=== PATIENT | female | born 1990 | race Caucasian/White ===

== ENCOUNTER 2017-02-17 07:14 | Inpatient (IN) | payer OTHER ==
[2017-02-17] MEDS ORDERED: Oxytocin/Lactated Ringers 10 UNIT/1,000 ML BAG IV SCH ×2 (07:15)
[2017-02-17] MEDS ORDERED: Sodium Chloride 0.9% 10 ML Syringe FLUSH PRN (07:15)
[2017-02-17] MEDS ORDERED: Nalbuphine 20 MG/1 ML Amp IVPUSH PRN (07:15)
[2017-02-17] MEDS ORDERED: Ondansetron 4 MG/2 ML SDV IVPUSH PRN ×2 (07:15→12:52)
--- NOTE | 2017-02-17 07:25 | PCM.LDHP ---
L&D History of Present Illness - General Date of Service: 02/17/17 Admit Problem/Dx: Patient Status Order with Admit Dx/Problem 02/17/17 07:17 Patient Status [ADT] Routine Admission Diagnosis/Problem Admission Diagnosis/Problem Normal Source of Information: Patient History Limitations: Reports: No Limitations - History of Present Illness Introduction:: Patient is a 26 y/o at 39 2/7 wks gestation who presents for elective IOL. Doing well today. No major issues or concerns. Past Medical History - Past Health History Medical/Surgical History: Denies Medical/Surgical History Cardiovascular History: Reports: Other (See Below) (Hx of gestational HTN) [employer] TE[employer]ER History: Reports: : 2 Para: 1 LMP (Approximate): Social & Family History - Tobacco Use Smoking Status *Q: Never Smoker - Alcohol Use Alcohol Use History: No - Recreational Drug Use Recreational Drug Use: No H&P Review of Systems - Review of Systems: Review Of Systems: See Below General: Reports: No Symptoms Pulmonary: Reports: No Symptoms Cardiovascular: Reports: Orthopnea Gastrointestinal: Reports: No Symptoms Genitourinary: Reports: No Symptoms Musculoskeletal: Reports: No Symptoms L&D Exam - Exam Exam: See Below - OB Specific Contraction Intensity: Irritability Movement: Active Heart Tones: Present Heart Tones per Min: 130 Heart Rate (FHR) Variability: Moderate (6-25 bmp) Presentation: Vertex Estimated Weight: 7.5 - Carrizales Score Carrizales Score Cervix Position: Posterior Carrizales Score Consistency: Soft Carrizales Score Effacement: >80% Carrizales Score Dilation: 3-4 cm Carrizales Score Infant's Station: -2 Carrizales Score Total: 8 - Exam General: Alert, Oriented, Cooperative Lungs: Clear to Auscultation, Normal Respiratory Effort Cardiovascular: Regular Rate, Regular Rhythm Abdomen: Soft Genitourinary: Normal external exam Extremities: Normal Inspection Skin: Warm, Dry, Intact - Problem List (1) 39 weeks gestation of SNOMED Code(s): 28872796 ICD Code: Z3A.39 - 39 WEEKS GESTATION OF Status: Acute Current Visit: Yes (2) Elective induction of labor planned SNOMED Code(s): 099035026 ICD Code: [id number] - Status: Acute Current Visit: Yes Problem List Initiated/Reviewed/Updated: Yes Orders Last 24hrs: Active Orders 24 hr Category Date Time Status Patient Status [ADT] Routine ADT 02/17/17 07:17 Ordered Activity as Tolerated [RC] PFP Care 02/17/17 07:15 Ordered Communication Order [RC] ASDIRECTED Care 02/17/17 07:15 Ordered Communication Order [RC] ASDIRECTED Care 02/17/17 07:15 Ordered Communication Order [RC] ASDIRECTED Care 02/17/17 07:15 Ordered Heart Tones [RC] ASDIRECTED Care 02/17/17 07:17 Ordered Monitoring [RC] INTERMITTENT Care 02/17/17 07:15 Ordered Notify Provider [RC] ASDIRECTED Care 02/17/17 07:15 Ordered Notify Provider [RC] PFP Care 02/17/17 07:15 Ordered Notify Provider [RC] PRN Care 02/17/17 07:15 Ordered Peripheral IV Care [RC] . DIRECTED Care 02/17/17 07:17 Ordered Vaginal Exam [RC] ASDIRECTED Care 02/17/17 07:15 Ordered Vital Signs [RC] ASDIRECTED Care 02/17/17 07:15 Ordered Vital Signs [RC] PER UNIT ROUTINE Care 02/17/17 07:15 Ordered Regular Diet [DIET] Diet 02/17/17 Breakfast Ordered CBC W/O DIFF,HEMOGRAM [HEME] Routine Lab 02/17/17 07:15 Ordered TYPE AND SCREEN [BBK] Routine Lab 02/17/17 07:15 Ordered Lactated Ringers [Ringers, Lactated] 1,000 ml Med 02/17/17 07:15 Ordered IV ASDIRECTED Nalbuphine [Nubain] Med 02/17/17 07:15 Ordered 10 mg IVPUSH Q2H PRN Ondansetron [Zofran] Med 02/17/17 07:15 Ordered 4 mg IVPUSH Q4H PRN Oxytocin/Lactated Ringers [Pitocin in LR 10 Units/1,000 Med 02/17/17 07:15 Ordered ML] 10 unit in 1,000 ml IV TITRATE Oxytocin/Lactated Ringers [Pitocin in LR 10 Units/1,000 Med 02/17/17 07:15 Ordered ML] 10 unit in 1,000 ml IV TITRATE Sodium Chloride 0.9% [Saline Flush] Med 02/17/17 07:15 Ordered 10 ml FLUSH ASDIRECTED PRN Electronic Heart Tones Ext w TOCO [WOMSER] Oth 02/17/17 07:15 Ordered Routine Electronic Heart Tones Internal [WOMSER] Per Unit Ot 02/17/17 07:15 Ordered Routine Peripheral IV Insertion Adult [OM.PC] Routine Ot 02/17/17 07:15 Ordered Resuscitation Status Routine Resus Stat 02/17/17 07:15 Ordered Assessment/Plan Comment:: 26 y/o at 39 2/7 wks presents for elective IOL * CBC and T&S * GBS negative, no need for antibiotics * Pain management per patient preference * Anticipate Mylene Hollingsworth
[2017-02-17] MEDS: Lactated Ringers 1,000 ML IV SCH ×3 (08:30→13:35)
--- NOTE | 2017-02-17 12:26 | PCM.PNLD ---
Labor Progress Note - VS & Meds Vital Signs: Last Vital Signs Temp 36.6 C 02/17/17 07:54 Pulse 68 02/17/17 07:54 Resp 16 02/17/17 07:54 BP 116/78 02/17/17 07:54 Pulse Ox 98 02/17/17 07:54 Active Medications: Current Medications Lactated Ringer's (Ringers, Lactated) 1,000 mls @ 40 mls/hr IV ASDIRECTED LURDES Last Admin: 02/17/17 08:30 Dose: 40 mls/hr Oxytocin/Lactated Ringer's (Pitocin In Lr 10 Units/1,000 Ml) 10 unit in 1,000 mls @ 500 mls/hr IV TITRATE LURDES PRN Reason: Protocol Oxytocin/Lactated Ringer's (Pitocin In Lr 10 Units/1,000 Ml) 10 unit in 1,000 mls @ 12 mls/hr IV TITRATE LURDES; 2 MUNITS/MIN PRN Reason: Protocol Last Titration: 02/17/17 12:00 Dose: 6 munits/min, 36 mls/hr Nalbuphine HCl (Nubain) 10 mg IVPUSH Q2H PRN PRN Reason: Pain (moderate 4-6) Ondansetron HCl (Zofran) 4 mg IVPUSH Q4H PRN PRN Reason: Nausea/Vomiting Sodium Chloride (Saline Flush) 10 ml FLUSH ASDIRECTED PRN PRN Reason: Keep Vein Open - Uterine Contractions Uterine Monitoring Mode: External [place] Contraction Intensity: Moderate - Monitoring Monitor Mode: External Ultrasound Heart Rate (FHR) Baseline: 130 Heart Rate (FHR) Variability: Moderate (6-25 bmp) Accelerations: Present, 10x10 (=/<32 wks) Decelerations: None Strip Review: Category I - Vaginal Exam Dilation (cm): 4-5 Effacement (Percent): 75 Station: -2 Cervical Position: Midposition - Labor Progress (Free Text) Labor Progress: Doing well. Pitocin at 6. AROM performed with release of clear fluid. Continue present management
[2017-02-17] MEDS ORDERED: diphenhydrAMINE 50 MG/ML SDV IVPUSH PRN (12:52)
[2017-02-17] MEDS ORDERED: ePHEDrine 50 MG/ML SDV IVPUSH PRN (12:52)
[2017-02-17] MEDS ORDERED: fentaNYL 100 MCG/2 ML SDV EPIDUR PRN (12:52)
[2017-02-17] MEDS ORDERED: Bupivacaine/fentaNYL/NS 100 ML Bag EPIDUR SCH (13:00)
--- NOTE | 2017-02-17 13:27 | PCM.PREANE ---
Preanesthetic Assessment - Procedure Proposed Procedure: Labor Epidural - Anesthesia/Transfusion/Family Hx Anesthesia History: Prior Anesthesia Without Reaction (prior epidural with no complications) Family History of Anesthesia Reaction: No Transfusion History: No Prior Transfusion(s) Intubation History: Unknown - Review of Systems General: No Symptoms Pulmonary: No Symptoms Cardiovascular: No Symptoms Gastrointestinal: No symptoms Neurological: No Symptoms Other: Reports: None - Physical Assessment NPO Status Date: 02/17/17 NPO Status Time: 12:00 O2 Sat by Pulse Oximetry: 98 Respiratory Rate: 16 Vital Signs: Last Vital Signs Temp 36.6 C 02/17/17 07:54 Pulse 68 02/17/17 07:54 Resp 16 02/17/17 07:54 BP 116/78 02/17/17 07:54 Pulse Ox 98 02/17/17 07:54 Height: 1.63 m Weight: 68.765 kg ASA Class: 2 Mental Status: Alert & Oriented x3 Airway Class: Mallampati = 1 Dentition: Reports: Normal Dentition Thyro-Mental Finger Breadths: 3 Mouth Opening Finger Breadths: 3 ROM/Head Extension: Full Lungs: Clear to auscultation, Normal respiratory effort Cardiovascular: Regular Rate, Regular Rhythm - Lab Values: Laboratory Last Values WBC 8.13 K/mm3 (3.98-10.04) 02/17/17 07:48 RBC 3.61 M/mm3 (3.98-5.22) L 02/17/17 07:48 Hgb 9.9 gm/L (11.2-15.7) L 02/17/17 07:48 Hct 31.2 % (34.1-44.9) L 02/17/17 07:48 MCV 86.4 fl (79.4-94.8) 02/17/17 07:48 MCH 27.4 pg (25.6-32.2) 02/17/17 07:48 MCHC 31.7 g/dl (32.2-35.5) L 02/17/17 07:48 RDW Std Deviation 43.8 fL (36.4-46.3) 02/17/17 07:48 Plt Count 198 K/mm3 (182-369) 02/17/17 07:48 MPV 9.8 fl (9.4-12.3) 02/17/17 07:48 Blood Type O POSITIVE 02/17/17 07:48 Gel Antibody Screen Negative 02/17/17 07:48 - Allergies Allergies/Adverse Reactions: Allergies Allergy/AdvReac Type Severity Reaction Status Date / Time No Known Allergies Allergy Verified 02/17/17 08:06 - Blood Blood Available: No Product(s) Available: None - Anesthesia Plan Pre-Op Medication Ordered: None - Acknowledgements Anesthesia Type Planned: Epidural Pt an Appropriate Candidate for the Planned Anesthesia: Yes Alternatives and Risks of Anesthesia Discussed w Pt/Guardian: Yes Pt/Guardian Understands and Agrees with Anesthesia Plan: Yes PreAnesthesia Questionnaire - Past Health History Medical/Surgical History: Denies Medical/Surgical History Cardiovascular History: Reports: Other (See Below) (Hx of gestational HTN) [employer]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 [No Known Home Meds] 02/17/17 [History] - CURRENT (IN HOUSE) MEDS Current Meds: Current Medications Diphenhydramine HCl (Benadryl) 25 mg IVPUSH Q6H PRN PRN Reason: Pruritis Ephedrine Sulfate (Ephedrine Sulfate) 5 mg IVPUSH ASDIRECTED PRN PRN Reason: Hypotension Fentanyl (Sublimaze) 100 mcg EPIDUR Q3H PRN PRN Reason: Pain Last Admin: 02/17/17 13:15 Dose: 100 mcg Fentanyl/Bupivacaine HCl (Fentanyl/Bupivacaine/Ns 2 Mcg-0.125% 100 Ml) 100 ml EPIDUR ASDIRECTED LURDES Last Admin: 02/17/17 13:15 Dose: 100 ml Lactated Ringer's (Ringers, Lactated) 1,000 mls @ 40 mls/hr IV ASDIRECTED LURDES Last Admin: 02/17/17 12:45 Dose: 999 mls/hr Oxytocin/Lactated Ringer's (Pitocin In Lr 10 Units/1,000 Ml) 10 unit in 1,000 mls @ 500 mls/hr IV TITRATE LURDES PRN Reason: Protocol Oxytocin/Lactated Ringer's (Pitocin In Lr 10 Units/1,000 Ml) 10 unit in 1,000 mls @ 12 mls/hr IV TITRATE LURDES; 2 MUNITS/MIN PRN Reason: Protocol Last Titration: 06/22/17 12:00 Dose: 6 munits/min, 36 mls/hr Nalbuphine HCl (Nubain) 10 mg IVPUSH Q2H PRN PRN Reason: Pain (moderate 4-6) Ondansetron HCl (Zofran) 4 mg IVPUSH Q4H PRN PRN Reason: Nausea/Vomiting Ondansetron HCl (Zofran) 4 mg IVPUSH ONETIME PRN PRN Reason: Nausea/Vomiting Sodium Chloride (Saline Flush) 10 ml FLUSH ASDIRECTED PRN PRN Reason: Keep Vein Open
--- NOTE | 2017-02-17 17:04 | PCM.DEL ---
L & D Note - General Info Date of Service: 02/17/17 - Delivery Note Labor: induced by ARM, induced by oxytocin Delivery Outcome: Livebirth Infant Delivery Mode: Spontaneous Presentation: Left Occiput Anterior (KIMBERLYN) Nuchal Cord: None Anesthesia Type: Epidural Amniotic Fluid Description: Clear Episiotomy Type: None Laceration: none Placenta: intact, spontaneous Cord: 3 vessels Estimated Blood Loss: 250 Resuscitation Needed: Yes : Bulb Syringe, Stimulated, Warmed, [place] Used, Warmer Used Score 1 min: 9 Score 5 min: 9 Delivery Comments (Free Text/Narrative):: Patient found to be complete and began pushing. With maternal pushing effort head delivered from an KIMBERLYN presentation. No nuchal cord present. With gentle downward traction the shoulders and body delivered. placed on maternal abdomen. Cord clamped and cut. Cord blood obtained. Placenta allowed time to separate and then spontaneously expelled. Inspection of the perineum showed small abrasion, but no scottie lacerations. - Patient Data Vitals - most recent: Last Vital Signs Temp 36.6 C 02/17/17 07:54 Pulse 68 02/17/17 07:54 Resp 16 02/17/17 13:27 BP 116/78 02/17/17 07:54 Pulse Ox 98 02/17/17 13:27 Weight - most recent: 68.765 kg Lab Results last 24 hrs: Laboratory Results - last 24 hr 02/17/17 02/17/17 Range/Units 07:48 07:48 WBC 8.13 (3.98-10.04) K/mm3 RBC 3.61 L (3.98-5.22) M/mm3 Hgb 9.9 L (11.2-15.7) gm/L Hct 31.2 L (34.1-44.9) % MCV 86.4 (79.4-94.8) fl MCH 27.4 (25.6-32.2) pg MCHC 31.7 L (32.2-35.5) g/dl RDW Std Deviation 43.8 (36.4-46.3) fL Plt Count 198 (182-369) K/mm3 MPV 9.8 (9.4-12.3) fl Blood Type O POSITIVE Gel Antibody Screen Negative Med Orders - Current: Current Medications Diphenhydramine HCl (Benadryl) 25 mg IVPUSH Q6H PRN PRN Reason: Pruritis Ephedrine Sulfate (Ephedrine Sulfate) 5 mg IVPUSH ASDIRECTED PRN PRN Reason: Hypotension Fentanyl (Sublimaze) 100 mcg EPIDUR Q3H PRN PRN Reason: Pain Last Admin: 02/17/17 13:15 Dose: 100 mcg Fentanyl/Bupivacaine HCl (Fentanyl/Bupivacaine/Ns 2 Mcg-0.125% 100 Ml) 100 ml EPIDUR ASDIRECTED LURDES Last Admin: 02/17/17 13:15 Dose: 100 ml Lactated Ringer's (Ringers, Lactated) 1,000 mls @ 40 mls/hr IV ASDIRECTED LURDES Last Admin: 02/17/17 13:35 Dose: 999 mls/hr Oxytocin/Lactated Ringer's (Pitocin In Lr 10 Units/1,000 Ml) 10 unit in 1,000 mls @ 500 mls/hr IV TITRATE LURDES PRN Reason: Protocol Oxytocin/Lactated Ringer's (Pitocin In Lr 10 Units/1,000 Ml) 10 unit in 1,000 mls @ 12 mls/hr IV TITRATE LURDES; 2 MUNITS/MIN PRN Reason: Protocol Last Titration: 02/17/17 12:00 Dose: 6 munits/min, 36 mls/hr Nalbuphine HCl (Nubain) 10 mg IVPUSH Q2H PRN PRN Reason: Pain (moderate 4-6) Ondansetron HCl (Zofran) 4 mg IVPUSH Q4H PRN PRN Reason: Nausea/Vomiting Ondansetron HCl (Zofran) 4 mg IVPUSH ONETIME PRN PRN Reason: Nausea/Vomiting Sodium Chloride (Saline Flush) 10 ml FLUSH ASDIRECTED PRN PRN Reason: Keep Vein Open - Problem List & Annotations (1) 39 weeks gestation of SNOMED Code(s): 59319353 Code(s): Z3A.39 - 39 WEEKS GESTATION OF Status: Acute Current Visit: Yes (2) Elective induction of labor planned SNOMED Code(s): 944655044 Code(s): NUB1234 - Status: Acute Current Visit: Yes (3) Vaginal delivery SNOMED Code(s): 360951581 Code(s): O80 - ENCOUNTER FOR FULL-TERM UNCOMPLICATED DELIVERY Status: Acute Current Visit: Yes - Problem List Review Problem List Initiated/Reviewed/Updated: Yes - My Orders Last 24 Hours: My Active Orders 02/17/17 07:15 Activity as Tolerated [RC] PFP Communication Order [RC] ASDIRECTED Communication Order [RC] ASDIRECTED Communication Order [RC] ASDIRECTED Monitoring [RC] INTERMITTENT Notify Provider [RC] ASDIRECTED Notify Provider [RC] PRN Lactated Ringers [Ringers, Lactated] 1,000 ml IV ASDIRECTED Nalbuphine [Nubain] 10 mg IVPUSH Q2H PRN Ondansetron [Zofran] 4 mg IVPUSH Q4H PRN Oxytocin/Lactated Ringers [Pitocin in LR 10 Units/1,000 ML] 10 unit in 1,000 ml IV TITRATE Oxytocin/Lactated Ringers [Pitocin in LR 10 Units/1,000 ML] 10 unit in 1,000 ml IV TITRATE Sodium Chloride 0.9% [Saline Flush] 10 ml FLUSH ASDIRECTED PRN Electronic Heart Tones Ext w TOCO [WOMSER] Routine Electronic Heart Tones Internal [WOMSER] Per Unit Routine Peripheral IV Insertion Adult [OM.PC] Routine Resuscitation Status Routine 02/17/17 07:17 Patient Status [ADT] Routine Peripheral IV Care [RC] . DIRECTED 02/17/17 16:56 Patient Status Manage Transfer [TRANSFER] Routine 02/17/17 Breakfast Regular Diet [DIET] - Assessment Assessment:: 26 y/o G2 now P2002 PPD#0 from at 39 2/7 wks - Plan Plan:: * Routine cares * Encourage breast feeding * Discharge home in 1- 2 days Mylene Hollingsworth
[2017-02-17] MEDS ORDERED: Witch Hazel Medicated Pads 100/Jar TOP PRN (17:12)
[2017-02-17] MEDS ORDERED: Bupivacaine 0.25% 10 ML SDV ONE (17:12)
[2017-02-17] MEDS ORDERED: Lanolin 100% Cream 7 GM Tube TOP PRN (17:12)
[2017-02-17] MEDS ORDERED: Acetaminophen 325 MG Tab PO PRN (17:12)
[2017-02-17] MEDS ORDERED: Benzocaine/Menthol 20%-0.5% Spray 56 GM Canister TOP PRN (17:12)
[2017-02-17] MEDS ORDERED: Docusate Sodium 100 MG Cap PO PRN (17:12)
[2017-02-18] MEDS: Ibuprofen 600 MG Tab PO PRN ×2 (04:30→13:40)
--- NOTE | 2017-02-18 07:25 | PCM.PNPP ---
- General Info Date of Service: 02/18/17 Functional Status: Reports: pain controlled, tolerating diet, ambulating, urinating - Review of Systems General: Reports: No Symptoms Pulmonary: Reports: no symptoms Cardiovascular: Reports: No Symptoms Gastrointestinal: Reports: No symptoms Genitourinary: Reports: no symptoms Musculoskeletal: Reports: no symptoms - Patient Data Vital Signs - most recent: Last Vital Signs Temp 36.2 C 02/18/17 04:31 Pulse 78 02/18/17 04:31 Resp 16 02/18/17 04:31 BP 112/69 02/18/17 04:31 Pulse Ox 100 02/18/17 04:31 Weight - most recent: 68.765 kg Lab Results - last 24 hrs: Laboratory Results - last 24 hr 02/17/17 02/17/17 Range/Units 07:48 07:48 WBC 8.13 (3.98-10.04) K/mm3 RBC 3.61 L (3.98-5.22) M/mm3 Hgb 9.9 L (11.2-15.7) gm/L Hct 31.2 L (34.1-44.9) % MCV 86.4 (79.4-94.8) fl MCH 27.4 (25.6-32.2) pg MCHC 31.7 L (32.2-35.5) g/dl RDW Std Deviation 43.8 (36.4-46.3) fL Plt Count 198 (182-369) K/mm3 MPV 9.8 (9.4-12.3) fl Blood Type O POSITIVE Gel Antibody Screen Negative Med Orders - Current: Current Medications Acetaminophen (Tylenol) 650 mg PO Q4H PRN PRN Reason: mild pain or fever Benzocaine/Menthol (Dermoplast Pain Relief [place]) 0 gm TOP ASDIRECTED PRN PRN Reason: Perineal Comfort Measure Docusate Sodium (Colace) 100 mg PO BID PRN PRN Reason: Constipation Emollient Ointment (Lansinoh Hpa) 0 gm TOP ASDIRECTED PRN PRN Reason: Sore Nipples Ibuprofen (Motrin) 600 mg PO Q6H PRN PRN Reason: Mild pain or fever Last Admin: 02/18/17 04:30 Dose: 600 mg Witch Luz Maria (Tucks) 1 pad TOP ASDIRECTED PRN PRN Reason: Hemorrhoid pain Discontinued Medications Diphenhydramine HCl (Benadryl) 25 mg IVPUSH Q6H PRN PRN Reason: Pruritis Ephedrine Sulfate (Ephedrine Sulfate) 5 mg IVPUSH ASDIRECTED PRN PRN Reason: Hypotension Fentanyl (Sublimaze) 100 mcg EPIDUR Q3H PRN PRN Reason: Pain Last Admin: 02/17/17 13:15 Dose: 100 mcg Fentanyl/Bupivacaine HCl (Fentanyl/Bupivacaine/Ns 2 Mcg-0.125% 100 Ml) 100 ml EPIDUR ASDIRECTED LURDES Last Admin: 02/17/17 13:15 Dose: 100 ml Lactated Ringer's (Ringers, Lactated) 1,000 mls @ 40 mls/hr IV ASDIRECTED LURDES Last Admin: 02/17/17 13:35 Dose: 999 mls/hr Oxytocin/Lactated Ringer's (Pitocin In Lr 10 Units/1,000 Ml) 10 unit in 1,000 mls @ 500 mls/hr IV TITRATE LURDES PRN Reason: Protocol Oxytocin/Lactated Ringer's (Pitocin In Lr 10 Units/1,000 Ml) 10 unit in 1,000 mls @ 12 mls/hr IV TITRATE LURDES; 2 MUNITS/MIN PRN Reason: Protocol Last Titration: 02/17/17 12:00 Dose: 6 munits/min, 36 mls/hr Nalbuphine HCl (Nubain) 10 mg IVPUSH Q2H PRN PRN Reason: Pain (moderate 4-6) Ondansetron HCl (Zofran) 4 mg IVPUSH Q4H PRN PRN Reason: Nausea/Vomiting Ondansetron HCl (Zofran) 4 mg IVPUSH ONETIME PRN PRN Reason: Nausea/Vomiting Sodium Chloride (Saline Flush) 10 ml FLUSH ASDIRECTED PRN PRN Reason: Keep Vein Open - Interaction Disposition, : [place] in Room with Family Infant Interaction: Holding Infant Feeding: Breastfed ; Nursed Well Support Person: Significant Other - Recovery Exam Fundal Tone: Firm Fundal Level: At Umbilicus Fundal Placement: Midline Lochia Amount: Small, Moderate Lochia Color: Rubra/Red Perineum Description: Intact, Minimal Bruising/Swelling Bladder Status: Voiding Urinary Elimination: Voided - Exam General: alert, oriented, cooperative Abdomen: soft, no tenderness Extremities: no edema Skin: warm, dry, intact - Problem List & Annotations (1) 39 weeks gestation of SNOMED Code(s): 57667052 Code(s): Z3A.39 - 39 WEEKS GESTATION OF Status: Acute Current Visit: Yes (2) Elective induction of labor planned SNOMED Code(s): 709279999 Code(s): CCF2244 - Status: Acute Current Visit: Yes (3) Vaginal delivery SNOMED Code(s): 824315586 Code(s): O80 - ENCOUNTER FOR FULL-TERM UNCOMPLICATED DELIVERY Status: Acute Current Visit: Yes - Problem List Review Problem List Initiated/Reviewed/Updated: Yes - My Orders Last 24 Hours: My Active Orders 02/17/17 07:15 Monitoring [RC] INTERMITTENT Resuscitation Status Routine 02/17/17 17:12 Activity as Tolerated [RC] Vital Signs [RC] 04,12,20 Acetaminophen [Tylenol] 650 mg PO Q4H PRN Benzocaine/Menthol [Dermoplast Pain Relief [place]] See Dose Instructions TOP ASDIRECTED PRN Docusate Sodium [Colace] 100 mg PO BID PRN Ibuprofen [Motrin] 600 mg PO Q6H PRN Lanolin [Lansinoh HPA] See Dose Instructions TOP ASDIRECTED PRN Witch Luz Maria [Tucks] 1 pad TOP ASDIRECTED PRN Assess Lochia [WOMSER] Per Unit Routine Assess Uterine Involution [WOMSER] Per Unit Routine Breast Pump [WOMSER] Per Unit Routine Heat Therapy [OM.PC] PRN Ice Therapy [OM.PC] Per Unit Routine Perineal Care [OM.PC] Per Unit Routine Peripheral IV Discontinue [OM.PC] Routine Sitz Bath [OM.PC] Per Unit Routine 02/17/17 Dinner Regular Diet [DIET] 02/18/17 17:12 Heat Therapy [OM.PC] PRN - Assessment Assessment:: 26 y/o G2 now P2002 PPD#1 from at 39 2/7 wks - Plan Plan:: * Routine cares * Encourage breast feeding * Discharge home today vs tomorrow pending patient preference Mylene Hollingsworth
--- NOTE | 2017-02-18 11:27 | PCM48HPAN ---
Post Anesthesia Note - EVALUATION WITHIN 48HRS OF ANESTHETIC Vital Signs in Normal Range: Yes Patient Participated in Evaluation: Yes Respiratory Function Stable: Yes Airway Patent: Yes Cardiovascular Function Stable: Yes Hydration Status Stable: Yes Pain Control Satisfactory: Yes Nausea and Vomiting Control Satisfactory: Yes Mental Status Recovered: Yes - COMMENTS/OBSERVATIONS Free Text/Narrative:: no known anesthesia complications noted
--- NOTE | 2017-02-18 13:30 | PCM.DCSUM1 ---
Discharge Summary - Discharge Data Discharge Date: 02/18/17 Discharge Disposition: Home, Self-Care 01 Condition: Good - Discharge Diagnosis/Problem(s) (1) 39 weeks gestation of SNOMED Code(s): 87482019 ICD Code: Z3A.39 - 39 WEEKS GESTATION OF Status: Acute Current Visit: Yes (2) Elective induction of labor planned SNOMED Code(s): 417932166 ICD Code: WNH7465 - Status: Acute Current Visit: Yes (3) Vaginal delivery SNOMED Code(s): 817351476 ICD Code: O80 - ENCOUNTER FOR FULL-TERM UNCOMPLICATED DELIVERY Status: Acute Current Visit: Yes - Patient Summary/Data Complications: None Consults: None Recommended Follow-up Testing/Procedures: Follow up in 5-[address] Hollingsworth for exam Hospital Course: 26 y/o at 39 2/7 wks who presented for planned IOL. This was done with pitocin and AROM. Patient progressed well to complete dilation and underwent an uncomplicated . See delivery note for full details. she did well and was discharged home on PPD#1 - Patient Instructions Diet: Regular Diet as Tolerated Activity: As Tolerated Activity, Other: Pelvic Rest for 6 weeks Driving: May Drive Today Showering/Bathing: May Shower Showering/Bathing, Other: May bathe Notify Provider of: Fever, Increased Pain, Swelling and Redness, Drainage, Nausea and/or Vomiting - Discharge Plan Home Medications: Home Meds Docusate Sodium [Colace] 100 mg PO BID PRN #0 cap 02/18/17 [Rx] Ibuprofen [IJD: Ibuprofen] 600 mg PO Q6H PRN #0 tablet 02/18/17 [Rx] Patient Handouts: Depression and Baby Blues, Care After Vaginal Delivery Referrals: Mylene Hollingsworth MD [Physician] - (5-6 weeks for exam) - Discharge Summary/Plan Comment DC Time >30 min.: No - Patient Data Vitals - Most Recent: Last Vital Signs Temp 36.2 C 02/18/17 04:31 Pulse 78 02/18/17 04:31 Resp 16 02/18/17 04:31 BP 112/69 02/18/17 04:31 Pulse Ox 100 02/18/17 04:31 Weight - Most Recent: 68.765 kg I&O - Last 24 hours: Intake & Output 02/17/17 02/18/17 02/18/17 22:59 06:59 14:59 Intake Total 0 Balance 0 Lab Results - Last 24 hrs: Laboratory Results - last 24 hr 02/17/17 Range/Units 07:48 Blood Type O POSITIVE Gel Antibody Screen Negative Med Orders - Current: Current Medications Acetaminophen (Tylenol) 650 mg PO Q4H PRN PRN Reason: mild pain or fever Last Admin: 02/18/17 08:36 Dose: 650 mg Benzocaine/Menthol (Dermoplast Pain Relief [place]) 0 gm TOP ASDIRECTED PRN PRN Reason: Perineal Comfort Measure Docusate Sodium (Colace) 100 mg PO BID PRN PRN Reason: Constipation Emollient Ointment (Lansinoh Hpa) 0 gm TOP ASDIRECTED PRN PRN Reason: Sore Nipples Ibuprofen (Motrin) 600 mg PO Q6H PRN PRN Reason: Mild pain or fever Last Admin: 02/18/17 04:30 Dose: 600 mg Witch Luz Maria (Tucks) 1 pad TOP ASDIRECTED PRN PRN Reason: Hemorrhoid pain Discontinued Medications Diphenhydramine HCl (Benadryl) 25 mg IVPUSH Q6H PRN PRN Reason: Pruritis Ephedrine Sulfate (Ephedrine Sulfate) 5 mg IVPUSH ASDIRECTED PRN PRN Reason: Hypotension Fentanyl (Sublimaze) 100 mcg EPIDUR Q3H PRN PRN Reason: Pain Last Admin: 02/17/17 13:15 Dose: 100 mcg Fentanyl/Bupivacaine HCl (Fentanyl/Bupivacaine/Ns 2 Mcg-0.125% 100 Ml) 100 ml EPIDUR ASDIRECTED [facility] Last Admin: 02/17/17 13:15 Dose: 100 ml Lactated Ringer's (Ringers, Lactated) 1,000 mls @ 40 mls/hr IV ASDIRECTED [facility] Last Admin: 02/17/17 13:35 Dose: 999 mls/hr Oxytocin/Lactated Ringer's (Pitocin In Lr 10 Units/1,000 Ml) 10 unit in 1,000 mls @ 500 mls/hr IV TITRATE [facility] PRN Reason: Protocol Oxytocin/Lactated Ringer's (Pitocin In Lr 10 Units/1,000 Ml) 10 unit in 1,000 mls @ 12 mls/hr IV TITRATE LURDES; 2 MUNITS/MIN PRN Reason: Protocol Last Titration: 02/17/17 12:00 Dose: 6 munits/min, 36 mls/hr Nalbuphine HCl (Nubain) 10 mg IVPUSH Q2H PRN PRN Reason: Pain (moderate 4-6) Ondansetron HCl (Zofran) 4 mg IVPUSH Q4H PRN PRN Reason: Nausea/Vomiting Ondansetron HCl (Zofran) 4 mg IVPUSH ONETIME PRN PRN Reason: Nausea/Vomiting Sodium Chloride (Saline Flush) 10 ml FLUSH ASDIRECTED PRN PRN Reason: Keep Vein Open *Q Meaningful Use (DIS) - VTE *Q VTE Criteria *Q: - Stroke *Q Stroke Criteria *Q: - AMI *Q AMI Criteria *Q:
[2017-02-18 13:44] VITALS: BP 101/71
== END 2017-02-18 19:00 | disposition home or self-care (01) | DRG 775 ==
LOC: JD.OB 07:14 → OBSVTOIN 16:46
PROVIDERS: ADMIT Obstetrics & Gynecology; ATTEND Obstetrics & Gynecology
PROC: 10E0XZZ Delivery of Products of Conception, External Approach (ICD-10-PCS; principal; 2017-02-17)
PROC: 10907ZC Drainage of Amniotic Fluid, Therapeutic from Products of Conception, Via Natural or Artificial Opening (ICD-10-PCS; 2017-02-17)
PROC: 3E033VJ Introduction of Other Hormone into Peripheral Vein, Percutaneous Approach (ICD-10-PCS; 2017-02-17)
PROC: 3E0R3CZ (ICD-10-PCS; 2017-02-17)
DX: O80 Encounter for full-term uncomplicated delivery (principal); Z3A.39 39 weeks gestation of pregnancy; Z37.0 Single live birth
CPT/HCPCS: 01967; 36415; 85027; 86850; 86900; 86901; A9270-GY; J2590; J3010; J7120

== ENCOUNTER 2018-06-02 19:10 | Emergency (ER) | payer BC, OTHER ==
[2018-06-02 19:26] VITALS: BP 121/85
[2018-06-02] MEDS ORDERED: Ketorolac 30 MG/ML SDV IVPUSH ONE (19:27)
[2018-06-02] MEDS ORDERED: Ondansetron 4 MG/2 ML SDV IVPUSH ONE (19:27)
[2018-06-02] MEDS ORDERED: Sodium Chloride 0.9% 1,000 ML IV ONE (19:27)
[2018-06-02] MEDS ORDERED: cefTRIAXone 2 GM in Sodium Chloride 0.9% 100 ML IV ONE (19:28)
--- NOTE | 2018-06-02 19:34 | EDM.PDOC ---
ED HPI GENERAL MEDICAL PROBLEM - General Chief Complaint: Abdominal Pain Stated Complaint: FEVER Time Seen by Provider: 06/02/18 19:16 - History of Present Illness INITIAL COMMENTS - FREE TEXT/NARRATIVE: Patient is 27-year-old female accompanied by family member presented today to the emergency department for an evaluation of left-sided flank pain for last few days. She stated that approximately 10-14 days ago she developed similar type of pain to her right side of the flank which was resolved on its own without any treatment. However she noted to have left-sided flank pain for last 3-4 days which is increasingly worsen over the 2 days and associated with fever (101F) at home, chills and nausea. She denies any urinary frequency or urgency , hematuria, urinary retention, vaginal bleeding or discharge, abdominal cramps or pain, or vomiting. She is currently sexually active and last menstrual period was 2 weeks ago. Currently she rated her discomfort level about 8 or 9 on a scale of 0-10. She denies taking any medication to alleviate pain prior to arrival. No specific aggravating or alleviating factors contributing to her pain. She denies any recent traveling or known sick contacts. Denies any other concern at this time. Left Abdomen Pain Score (Numeric/FACES): 8 - Related Data Allergies Allergy/AdvReac Type Severity Reaction Status Date / Time No Known Allergies Allergy Verified 02/17/17 08:06 Home Meds: Home Meds Docusate Sodium [Colace] 100 mg PO BID PRN #0 cap 02/18/17 [Rx] Ibuprofen [IJD: Ibuprofen] 600 mg PO Q6H PRN #0 tablet 02/18/17 [Rx] Ciprofloxacin HCl [Cipro] 500 mg PO BID 10 Days #20 tablet 06/02/18 [Rx] Ondansetron [Zofran ODT] 4 mg PO Q8H PRN #15 tab.dis 06/02/18 [Rx] Past Medical History - Past Health History Medical/Surgical History: Denies Medical/Surgical History Cardiovascular History: Reports: Other (See Below) (Hx of gestational HTN) 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 ED EXAM, RENAL/ - Physical Exam Exam: See Below Exam Limited By: No Limitations General Appearance: Alert, WD/WN, No Apparent Distress Head: Atraumatic, Normocephalic Neck: Normal Inspection, Supple, Full Range of Motion Respiratory/Chest: No Respiratory Distress, Lungs Clear, Normal Breath Sounds Cardiovascular: Normal Peripheral Pulses, Regular Rate, Rhythm GI/Abdominal: Normal Bowel Sounds, Soft, Non-Tender, No Organomegaly, No Distention, No Abnormal Bruit. No: Guarding, Rigid, Rebound (Female) Exam: Deferred Rectal (Female) Exam: Deferred Back Exam: Normal Inspection, Full Range of Motion, CVA Tenderness (L). No: CVA Tenderness (R) Extremities: Normal Inspection, Normal Range of Motion, Normal Capillary Refill Neurological: Alert, Oriented, No Motor/Sensory Deficits Psychiatric: Normal Affect, Normal Mood Skin Exam: Warm, Dry, Intact, Normal Color, No Rash Course - Vital Signs Last Recorded V/S: Last Vital Signs Temp 37.4 C 06/02/18 19:25 Pulse 105 H 06/02/18 19:25 Resp 20 06/02/18 19:25 BP 121/85 06/02/18 19:25 Pulse Ox 99 06/02/18 19:25 - Orders/Labs/Meds Labs: Laboratory Tests 06/02/18 06/02/18 06/02/18 Range/Units 19:40 19:47 19:47 WBC (3.98-10.04) K/mm3 RBC (3.98-5.22) M/mm3 Hgb (11.2-15.7) gm/L Hct (34.1-44.9) % MCV (79.4-94.8) fl MCH (25.6-32.2) pg MCHC (32.2-35.5) g/dl RDW Std Deviation (36.4-46.3) fL Plt Count (182-369) K/mm3 MPV (9.4-12.3) fl Neut % (Auto) (34.0-71.1) % Lymph % (Auto) (19.3-51.7) % Blount % (Auto) (4.7-12.5) % Eos % (Auto) (0.7-5.8) Baso % (Auto) (0.1-1.2) % Neut # (Auto) (1.56-6.13) K/mm3 Lymph # (Auto) (1.18-3.74) K/mm3 Blount # (Auto) (0.24-0.36) K/mm3 Eos # (Auto) (0.04-0.36) K/mm3 Baso # (Auto) (0.01-0.08) K/mm3 Sodium 135 L (136-145) mEq/L Potassium 3.5 (3.5-5.1) mEq/L Chloride 102 (98-107) mEq/L Carbon Dioxide 23 (21-32) mEq/L Anion Gap 13.5 (5-15) BUN 13 (7-18) mg/dL Creatinine 0.9 (0.55-1.02) mg/dL Est Cr Clr Drug Dosing 78.68 mL/min Estimated GFR (MDRD) > 60 (>60) mL/min BUN/Creatinine Ratio 14.4 (14-18) Glucose 89 (74-106) mg/dL Calcium 8.9 (8.5-10.1) mg/dL Total Bilirubin 0.6 (0.2-1.0) mg/dL AST 13 L (15-37) U/L ALT 16 (14-59) U/L Alkaline Phosphatase 63 (46-116) U/L Total Protein 8.1 (6.4-8.2) g/dl Albumin 4.1 (3.4-5.0) g/dl Globulin 4.0 gm/dL Albumin/Globulin Ratio 1.0 (1-2) Lipase 83 (73-393) U/L Urine Color Yellow (Yellow) Urine Appearance Slt cloudy H (Clear) Urine pH 6.0 (5.0-8.0) Ur Specific [place] 1.025 (1.005-1.030) Urine Protein 2+ H (Negative) Urine Glucose (UA) Negative (Negative) Urine Ketones 3+ H (Negative) Urine Occult Blood 3+ H (Negative) Urine Nitrite Negative (Negative) Urine Bilirubin 1+ H (Negative) Urine Urobilinogen 0.2 (0.2-1.0) Ur Leukocyte Esterase 1+ H (Negative) Urine RBC 20-30 H (0-5) /hpf Urine WBC 10-20 H (0-5) /hpf Ur Epithelial Cells 75-100 H (0-5) /hpf Urine Bacteria Many H (FEW) /hpf Urine Mucus Not seen (FEW) /hpf Urine HCG, Qual Negative (NEGATIVE) 06/02/18 Range/Units 19:47 WBC 8.75 (3.98-10.04) K/mm3 RBC 4.05 (3.98-5.22) M/mm3 Hgb 12.0 (11.2-15.7) gm/L Hct 36.8 (34.1-44.9) % MCV 90.9 (79.4-94.8) fl MCH 29.6 (25.6-32.2) pg MCHC 32.6 (32.2-35.5) g/dl RDW Std Deviation 44.4 (36.4-46.3) fL Plt Count 187 (182-369) K/mm3 MPV 8.8 L (9.4-12.3) fl Neut % (Auto) 64.2 (34.0-71.1) % Lymph % (Auto) 22.2 (19.3-51.7) % Blount % (Auto) 13.3 H (4.7-12.5) % Eos % (Auto) 0 L (0.7-5.8) Baso % (Auto) 0.2 (0.1-1.2) % Neut # (Auto) 5.62 (1.56-6.13) K/mm3 Lymph # (Auto) 1.94 (1.18-3.74) K/mm3 Blount # (Auto) 1.16 H (0.24-0.36) K/mm3 Eos # (Auto) 0.00 L (0.04-0.36) K/mm3 Baso # (Auto) 0.02 (0.01-0.08) K/mm3 Sodium (136-145) mEq/L Potassium (3.5-5.1) mEq/L Chloride (98-107) mEq/L Carbon Dioxide (21-32) mEq/L Anion Gap (5-15) BUN (7-18) mg/dL Creatinine (0.55-1.02) mg/dL Est Cr Clr Drug Dosing mL/min Estimated GFR (MDRD) (>60) mL/min BUN/Creatinine Ratio (14-18) Glucose (74-106) mg/dL Calcium (8.5-10.1) mg/dL Total Bilirubin (0.2-1.0) mg/dL AST (15-37) U/L ALT (14-59) U/L Alkaline Phosphatase (46-116) U/L Total Protein (6.4-8.2) g/dl Albumin (3.4-5.0) g/dl Globulin gm/dL Albumin/Globulin Ratio (1-2) Lipase (73-393) U/L Urine Color (Yellow) Urine Appearance (Clear) Urine pH (5.0-8.0) Ur Specific [place] (1.005-1.030) Urine Protein (Negative) Urine Glucose (UA) (Negative) Urine Ketones (Negative) Urine Occult Blood (Negative) Urine Nitrite (Negative) Urine Bilirubin (Negative) Urine Urobilinogen (0.2-1.0) Ur Leukocyte Esterase (Negative) Urine RBC (0-5) /hpf Urine WBC (0-5) /hpf Ur Epithelial Cells (0-5) /hpf Urine Bacteria (FEW) /hpf Urine Mucus (FEW) /hpf Urine HCG, Qual (NEGATIVE) Meds: Medications Discontinued Medications Generic Name Dose Route Start Last Admin Trade Name Freq PRN Reason Stop Dose Admin Ceftriaxone Sodium Confirm 06/02/18 19:39 06/02/18 19:47 Rocephin Administered 06/02/18 19:40 2 gm Dose Administration 2 gm IV .STK-MED ONE Ceftriaxone Sodium 2 gm/ 100 mls @ 200 mls/hr 06/02/18 19:28 06/02/18 19:48 Sodium Chloride IV 06/02/18 19:57 Not Given ONETIME ONE Sodium Chloride 1,000 mls @ 999 mls/hr 06/02/18 19:27 06/02/18 19:45 Normal Saline IV 06/02/18 20:27 999 mls/hr ONETIME ONE Administration Sodium Chloride Confirm 06/02/18 19:39 06/02/18 19:47 Normal Saline Administered 06/02/18 19:40 200 mls/hr Dose Administration 100 mls @ as directed .ROUTE .STK-MED ONE Ketorolac Tromethamine 30 mg 06/02/18 19:27 06/02/18 19:45 Toradol IVPUSH 06/02/18 19:28 30 mg ONETIME ONE Administration Morphine Sulfate 2 mg 06/02/18 20:48 06/02/18 20:56 Morphine IVPUSH 06/02/18 20:49 2 mg ONETIME ONE Administration Ondansetron HCl 4 mg 06/02/18 19:27 06/02/18 19:48 Zofran IVPUSH 06/02/18 19:28 4 mg ONETIME ONE Administration - Re-Assessments/Exams Free Text/Narrative Re-Assessment/Exam: 06/02/18 20:20 Patient reevaluated at bedside. Abdomen: Soft and nontender. Patient currently complains of pain to her left flank area which she rated it about 6 on a scale of 0-10. However she denies any nausea or cramping. She stated that she is feeling better with the use of intravenous saline bolus and Toradol IV. I will go ahead and order morphine 2 mg IV push once for the pain. I will reevaluate patient and continue monitor during ED stay. 06/02/18 21:00 At this time, patient reevaluated at bedside. Symptoms improving and progressing as expected. Patient alert and awake, afebrile with normal vital signs. Tolerating PO, abdomen soft and nontender to palpation. Results were reviewed and discussed with patient and available family member at bedside. Questions were solicited and answered. CT scan showed no acute abnormality. No evidence of severe dehydration, sepsis, appendicitis, or other surgical process. Patient appropriate for discharge. Patient and family both agrees with the discharge plan. Warning signs reviewed. Strong return precautions given for worsening symptoms or any other alarming symptoms such as persistent abdominal pain, flank pain, vomiting, fever greater than 100.4F, hematuria, urinary frequency, urgency, dysuria, persistent low back pain. At the time of discharge patient was alert and oriented 4, was in no acute distress. Ambulated on her own accord, and moving all 4 extremities voluntarily. Patient has been recommended to follow up with their established and/or referral primary care provider as soon as possible for further follow-up ED visit. Patient was informed discharge medications and counseled regarding use of medications. Departure - Departure Time of Disposition: 21:15 Disposition: Home, Self-Care 01 Condition: Good Clinical Impression: Pyelonephritis, Flank pain - Discharge Information *PRESCRIPTION DRUG MONITORING PROGRAM REVIEWED*: Not Applicable *COPY OF PRESCRIPTION DRUG MONITORING REPORT IN PATIENT DIEGO: Not Applicable Prescriptions: Ciprofloxacin HCl [Cipro] 500 mg PO BID 10 Days #20 tablet Ondansetron [Zofran ODT] 4 mg PO Q8H PRN #15 tab.dis PRN Reason: Nausea/Vomiting Instructions: Pyelonephritis, Adult, [id number] Referrals: PCP,None [Primary Care Provider] - 3 Days (Please establish care with her primary care provider as soon as possible. Call your choice up PCP for outpatient follow-up on the symptoms of today emergency visit) Forms: ED Department Discharge
[2018-06-02] MEDS ORDERED: Sodium Chloride 0.9% 100 ML ONE (19:39)
[2018-06-02] MEDS ORDERED: cefTRIAXone 2 GM AdvVial IV ONE (19:39)
--- NOTE | 2018-06-02 20:31 | CT ---
CT abdomen and pelvis Technique: Multiple axial sections were obtained from above the kidneys inferiorly through the pubic symphysis. Intravenous and oral contrast not utilized. Study has been performed as a ureteral stone protocol. Comparison: No previous abdominal CT. Findings: No ureteral dilatation is seen. No ureteral calculus is seen. Kidneys show no abnormal calcifications. Visualized portions of the lower liver and spleen have an unremarkable noncontrast CT appearance. Gallbladder shows no calcified gallstones. Adrenal glands are not included on this exam. Visualized portions of the pancreas are grossly unremarkable. Aorta shows no aneurysm. No retroperitoneal adenopathy or mesenteric abnormalities are seen. No pelvic mass or adenopathy is seen. Appendix felt to be seen and appears normal. No free fluid or inflammatory change is seen. Bone window settings were reviewed which appear within normal limits for the patient's age. Impression: 1. No renal calculi, ureteral dilatation or ureteral stone is seen. 2. Appendix is seen and appears normal in size. 3. No additional abnormality is appreciated on noncontrast CT study of the abdomen and pelvis performed as a ureteral stone protocol. Diagnostic code #2
[2018-06-02] MEDS ORDERED: Morphine 2 MG/ML Syringe IVPUSH ONE (20:48)
== END 2018-06-02 21:37 | disposition home or self-care (01) ==
LOC: JD.ED 19:10
DX: N12 Tubulo-interstitial nephritis, not specified as acute or chronic (principal)
CPT/HCPCS: 36415; 74176; 80053; 81001; 81025; 83690; 85025; 96361; 96365; 96375; 99284; J0696; J1885; J2270; J2405; J7030; J7040

== ENCOUNTER 2021-08-11 13:48 | Inpatient (IN) | payer OTHER ==
[2021-08-11] MEDS ORDERED: Nalbuphine 10 MG/1 ML Vial IVPUSH PRN (14:19)
[2021-08-11] MEDS ORDERED: Sodium Chloride 0.9% 10 ML Syringe FLUSH PRN (14:19)
[2021-08-11] MEDS ORDERED: Lactated Ringers 1,000 ML ONE (14:26)
[2021-08-11] MEDS ORDERED: fentaNYL 100 MCG/2 ML SDV EPIDUR PRN (14:29)
[2021-08-11] MEDS ORDERED: ePHEDrine 50 MG/ML SDV IVPUSH PRN (14:29)
[2021-08-11] MEDS ORDERED: Ondansetron 4 MG/2 ML SDV IVPUSH PRN (14:29)
[2021-08-11] MEDS ORDERED: Bupivacaine/fentaNYL/NS 100 ML Bag EPIDUR SCH (14:30)
[2021-08-11] MEDS ORDERED: Oxytocin/Lactated Ringers 10 UNIT/1,000 ML BAG IV SCH (14:30)
[2021-08-11] MEDS ORDERED: Bupivacaine 0.25% 10 ML SDV ONE (14:30)
--- NOTE | 2021-08-11 14:31 | PCM.PREANE ---
Preanesthetic Assessment - Procedure Proposed Procedure: Epidural - Anesthesia/Transfusion/Family Hx Anesthesia History: Prior Anesthesia Without Reaction (prior epidural with no complications) Family History of Anesthesia Reaction: No Transfusion History: No Prior Transfusion(s) Intubation History: Unknown - Review of Systems General: No Symptoms Pulmonary: No Symptoms (Covid +: only symptom= stuffy nose (nasal congestion)) Cardiovascular: No Symptoms (history of gestational HTN) Gastrointestinal: No Symptoms (GERD), Constipation Neurological: No Symptoms Other: Reports: None - Physical Assessment NPO Status Date: 08/11/21 NPO Status Time: 16:00 Vital Signs: HR: 96 Sat: 99% Temp: 98.3 B/P: 111/71 Resp: 18 Height: 1.63 m Weight: 69.853 kg ASA Class: 2 Mental Status: Alert & Oriented x3 Airway Class: Mallampati = 2 Dentition: Reports: Normal Dentition, Caries Thyro-Mental Finger Breadths: 3 Mouth Opening Finger Breadths: 3 ROM/Head Extension: Full Lungs: Clear to Auscultation, Normal Respiratory Effort Cardiovascular: Regular Rate, Regular Rhythm, No Murmurs - Lab Values: All labs reviewed and noted and within acceptable ranges to proceed with epidural if desired. - Allergies Allergies/Adverse Reactions: Allergies Allergy/AdvReac Type Severity Reaction Status Date / Time No Known Allergies Allergy Verified 02/17/17 08:06 - Anesthesia Plan Pre-Op Medication Ordered: None - Acknowledgements Anesthesia Type Planned: Epidural Pt an Appropriate Candidate for the Planned Anesthesia: Yes Alternatives and Risks of Anesthesia Discussed w Pt/Guardian: Yes Pt/Guardian Understands and Agrees with Anesthesia Plan: Yes PreAnesthesia Questionnaire - Past Health History Medical/Surgical History: Denies Medical/Surgical History Cardiovascular History: Reports: Other (See Below) (Hx of gestational HTN) 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 MEDS Home Medications: Home Meds Docusate Sodium [Colace] 100 mg PO BID PRN #0 cap 02/18/17 [Rx] Ibuprofen [IJD: Ibuprofen] 600 mg PO Q6H PRN #0 tablet 02/18/17 [Rx] Ciprofloxacin HCl [Cipro] 500 mg PO BID 10 Days #20 tablet 06/02/18 [Rx] Ondansetron [Zofran ODT] 4 mg PO Q8H PRN #15 tab.dis 06/02/18 [Rx] - CURRENT (IN HOUSE) MEDS Current Meds: Current Medications Oxytocin/Lactated Ringer's (Pitocin In Lr 10 Units/1,000 Ml) 10 unit in 1,000 mls @ 12 mls/hr IV TITRATE LURDES; Protocol Lactated Ringer's (Ringers, Lactated) 1,000 mls @ 100 mls/hr IV ASDIRECTED LURDES Nalbuphine HCl (Nalbuphine 10 Mg/1 Ml Vial) 10 mg IVPUSH Q2H PRN PRN Reason: Pain Sodium Chloride (Sodium Chloride 0.9% 10 Ml Syringe) 10 ml FLUSH 0900,2100 LURDES Sodium Chloride (Sodium Chloride 0.9% 10 Ml Syringe) 10 ml FLUSH ASDIRECTED PRN PRN Reason: Keep Vein Open Discontinued Medications Lactated Ringer's (Ringers, Lactated) Confirm Administered Dose 1,000 mls @ as directed .ROUTE .STK-MED ONE Stop: 08/11/21 14:27
[2021-08-11] MEDS: Lactated Ringers 1,000 ML IV SCH ×3 (14:40→22:48)
--- NOTE | 2021-08-11 16:41 | PCM.LDHP ---
L&D History of Present Illness - General Date of Service: 08/11/21 Admit Problem/Dx: Patient Status Order with Admit Dx/Problem 08/11/21 14:26 Admission Status [Patient Status] [ADT] Routine Admission Diagnosis/Problem Admission Diagnosis/Problem Source of Information: Patient History Limitations: Reports: No Limitations - History of Present Illness Introduction:: Patient is a 30 y/o at 37 2/7 wks who presents for IOL for oligohydramnios. Was seen in clinic yesterday and noted to have lagging fundal height. US done today with appropriate EFW, but only 5.2 cm of GALI total and some pictures with suspicion of less fluid. Otherwise doing well. 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 (Approximate): Social & Family History - Family History Family Medical History: No Pertinent Family History - Tobacco Use Tobacco Use Status *Q: Never Tobacco User Second Hand Smoke Exposure: No - Caffeine Use Caffeine Use: Reports: None - Alcohol Use Alcohol Use History: No - Recreational Drug Use Recreational Drug Use: No H&P Review of Systems - Review of Systems: Review Of Systems: See Below General: Reports: No Symptoms Pulmonary: Reports: No Symptoms Cardiovascular: Reports: No Symptoms Gastrointestinal: Reports: No Symptoms Genitourinary: Reports: No Symptoms Musculoskeletal: Reports: No Symptoms Neurological: Reports: No Symptoms L&D Exam - Exam Exam: See Below - Vital Signs Weight: 69.853 kg - OB Specific Contraction Intensity: Mild Movement: Active Heart Tones: Present Heart Rate (FHR) Variability: Moderate (6-25 bpm) Presentation: Vertex - Carrizales Score Carrizales Score Cervix Position: Midposition Carrizales Score Consistency: Soft Carrizales Score Effacement: >80% Carrizales Score Dilation: 3-4 cm Carrizales Score Infant's Station: -2 Carrizales Score Total: 9 - Exam General: Alert, Oriented, Cooperative Lungs: Clear to Auscultation, Normal Respiratory Effort Cardiovascular: Regular Rate, Regular Rhythm GI/Abdominal Exam: Soft, Non-Tender Genitourinary: Normal external exam Extremities: Normal Inspection Skin: Warm, Dry, Intact - Patient Data Lab Results Last 24 hrs: Laboratory Results - last 24 hr 08/11/21 08/11/21 Range/Units 15:00 15:02 WBC 7.30 (3.98-10.04) K/mm3 RBC 3.19 L (3.98-5.22) M/mm3 Hgb 9.7 L D (11.2-15.7) gm/dl Hct 30.6 L (34.1-44.9) % MCV 95.9 H D (79.4-94.8) fl MCH 30.4 (25.6-32.2) pg MCHC 31.7 L (32.2-35.5) g/dl RDW Std Deviation 47.5 H (36.4-46.3) fL Plt Count 168 L (182-369) K/mm3 MPV 9.5 (9.4-12.3) fl SARS-CoV-2 RNA (ZAHRAA) Positive H (NEGATIVE) Result Diagrams: 08/11/21 15:02 - Problem List (1) 37 weeks gestation of SNOMED Code(s): 52284898 ICD Code: Z3A.37 - 37 WEEKS GESTATION OF Status: Acute Current Visit: Yes (2) Oligohydramnios SNOMED Code(s): 56162795 ICD Code: O41.00X0 - OLIGOHYDRAMNIOS, UNSP TRIMESTER, NOT APPLICABLE OR UNSP Status: Acute Current Visit: Yes Qualifiers: Fetus number: single or unspecified fetus Trimester: third trimester Qualified Code(s): O41.03X0 - Oligohydramnios, third trimester, not applicable or unspecified (3) COVID-19 affecting in third trimester SNOMED Code(s): 941290687, 341057260 ICD Code: O98.513 - OTHER VIRAL DISEASES COMPLICATING , THIRD TRIMESTER; U07.1 - COVID-19 Status: Acute Current Visit: Yes Problem List Initiated/Reviewed/Updated: Yes Orders Last 24hrs: Active Orders 24 hr Category Date Time Status Admission Status [Patient Status] [ADT] Routine ADT 08/11/21 14:26 Active Activity as Tolerated [RC] PFP Care 08/11/21 14:19 Active Communication Order [RC] ASDIRECTED Care 08/11/21 14:19 Active Heart Tones [RC] ASDIRECTED Care 08/11/21 14:19 Active Non Stress Test [RC] PER UNIT ROUTINE Care 08/11/21 14:19 Active Notify Provider [RC] ASDIRECTED Care 08/11/21 14:29 Active Notify Provider [RC] PFP Care 08/11/21 14:19 Active Notify Provider [RC] PRN Care 08/11/21 14:19 Active Oxygen Therapy [RC] ASDIRECTED Care 08/11/21 14:29 Active Peripheral IV Care [RC] . DIRECTED Care 08/11/21 14:19 Active Pulse Oximetry [RC] ASDIRECTED Care 08/11/21 14:29 Active Vital Signs [RC] PER UNIT ROUTINE Care 08/11/21 14:19 Active Regular Diet [DIET] Diet 08/11/21 Dinner Active BLOOD BANK HOLD SPECIMEN [BBK] Stat Lab 08/11/21 14:19 Ordered RAPID PLASMA REAGIN,RPR [CHEM] Routine Lab 08/11/21 14:19 Ordered Bupivacaine/fentaNYL/NS [fentaNYL/Bupivacaine/NS 2 MCG- Med 08/11/21 14:30 Ac tive 0.125% 100 ML] 100 ml EPIDUR ASDIRECTED Lactated Ringers [Ringers, Lactated] 1,000 ml Med 08/11/21 14:30 Active IV ASDIRECTED Nalbuphine [Nubain] Med 08/11/21 14:19 Active 10 mg IVPUSH Q2H PRN Ondansetron [Zofran] Med 08/11/21 14:29 Active 4 mg IVPUSH ONETIME PRN Oxytocin/Lactated Ringers [Pitocin in LR 10 Units/1,000 Med 08/11/21 14:30 Active ML] 10 unit in 1,000 ml IV TITRATE Phenylephrine HCl In 0.9% NaCl [Phenylephrine 1 MG/10 Med 08/11/21 14:29 Active ML-NS] 0.1 mg IVPUSH Q10M PRN Sodium Chloride 0.9% [Saline Flush] Med 08/11/21 21:00 Active 10 ml FLUSH 0900,2100 Sodium Chloride 0.9% [Saline Flush] Med 08/11/21 14:19 Active 10 ml FLUSH ASDIRECTED PRN ePHEDrine [ePHEDrine sulfate] Med 08/11/21 14:29 Active 5 mg IVPUSH ASDIRECTED PRN fentaNYL [Sublimaze] Med 08/11/21 14:29 Active 100 mcg EPIDUR Q3H PRN Electronic Heart Tones Ext w TOCO [WOMSER] Oth 08/11/21 14:19 Ordered Routine Electronic Heart Tones Internal [WOMSER] Per Unit Oth 08/11/21 14:19 Ordered Routine Peripheral IV Insertion Adult [OM.PC] Routine Oth 08/11/21 14:19 Ordered Resuscitation Status Routine Resus Stat 08/11/21 14:19 Ordered Medication Orders Ephedrine Sulfate (Ephedrine 50 Mg/Ml Sdv) 5 mg IVPUSH ASDIRECTED PRN PRN Reason: Hypotension Fentanyl (Fentanyl 100 Mcg/2 Ml Sdv) 100 mcg EPIDUR Q3H PRN PRN Reason: Pain Fentanyl/Bupivacaine HCl (Bupivacaine/Fentanyl/Ns 100 Ml Bag) 100 ml EPIDUR ASDIRECTED LURDES Oxytocin/Lactated Ringer's (Pitocin In Lr 10 Units/1,000 Ml) 10 unit in 1,000 mls @ 12 mls/hr IV TITRATE LURDES; Protocol Last Admin: 08/11/21 14:47 Dose: 2 munits/min, 12 mls/hr Documented by: MARY Lactated Ringer's (Ringers, Lactated) 1,000 mls @ 100 mls/hr IV ASDIRECTED LURDES Last Admin: 08/11/21 14:40 Dose: 100 mls/hr Documented by: MARY Miscellaneous Medication (Phenylephrine Hcl In 0.9% Nacl 1 Mg/10 Ml Syringe) 0.1 mg IVPUSH Q10M PRN PRN Reason: Hypotension Nalbuphine HCl (Nalbuphine 10 Mg/1 Ml Vial) 10 mg IVPUSH Q2H PRN PRN Reason: Pain Ondansetron HCl (Ondansetron 4 Mg/2 Ml Sdv) 4 mg IVPUSH ONETIME PRN PRN Reason: Nausea/Vomiting Sodium Chloride (Sodium Chloride 0.9% 10 Ml Syringe) 10 ml FLUSH 0900,2100 LURDES Sodium Chloride (Sodium Chloride 0.9% 10 Ml Syringe) 10 ml FLUSH ASDIRECTED PRN PRN Reason: Keep Vein Open Assessment/Plan Comment:: * Labs done * COVID positive. Will monitor * GBS negative * Pitocin started. AROM done * Pain management per patient preference * Anticipate
[2021-08-11] MEDS ORDERED: Sodium Chloride 0.9% 10 ML Syringe FLUSH SCH (21:00)
--- NOTE | 2021-08-11 21:45 | PCM.DEL ---
L & D Note - General Info Date of Service: 08/11/21 - Delivery Note Labor: Induced by ARM, Induced by Oxytocin Delivery Outcome: Livebirth Infant Delivery Method: Spontaneous Vaginal Delivery-Single Infant Delivery Mode: Spontaneous Presentation: Right Occiput Anterior (JOLYNN) Nuchal Cord: None Anesthesia Type: Epidural Amniotic Fluid Description: Clear Episiotomy Type: None Laceration: None Placenta: Intact, Spontaneous Cord: 3 Vessels Estimated Blood Loss: 300 Resuscitation Needed: Yes [place]: Bulb Syringe, Stimulated, Warmed, [place] Used, Warmer Used Delivery Comments (Free Text/Narrative):: Patient found to be complete and began pushing. With maternal pushing effort head delivered from JOLYNN presentation. No nuchal cord present. With gentle downward traction shoulders and body delivered. placed on maternal abdomen. Cord clamped and cut. Cord blood obtained. Placenta allowed time to separate and expelled intact. Inspection of perineum with no lacerations - General Info Date of Service: 08/11/21 - Patient Data Vitals - Most Recent: Last Vital Signs Temp 36.8 C 08/11/21 14:19 Pulse 96 08/11/21 14:19 Resp 18 08/11/21 14:19 BP 111/71 08/11/21 14:19 Pulse Ox 96 08/11/21 14:19 Weight - Most Recent: 69.853 kg I&O - Last 24 Hours: Intake & Output 08/11/21 08/11/21 08/11/21 06:59 14:59 22:59 Intake Total 1000 Balance 1000 - Problem List & Annotations (1) 37 weeks gestation of SNOMED Code(s): 03049984 Code(s): Z3A.37 - 37 WEEKS GESTATION OF Status: Acute Current Visit: Yes (2) Oligohydramnios SNOMED Code(s): 58694208 Code(s): O41.00X0 - OLIGOHYDRAMNIOS, UNSP TRIMESTER, NOT APPLICABLE OR UNSP Status: Acute Current Visit: Yes (3) Vaginal delivery SNOMED Code(s): 156063659 Code(s): O80 - ENCOUNTER FOR FULL-TERM UNCOMPLICATED DELIVERY Status: Acute Current Visit: No - Problem List Review Problem List Initiated/Reviewed/Updated: Yes - My Orders Last 24 Hours: My Active Orders 08/11/21 14:19 Activity as Tolerated [RC] PFP Communication Order [RC] ASDIRECTED Heart Tones [RC] ASDIRECTED Notify Provider [RC] PFP Notify Provider [RC] PRN Peripheral IV Care [RC] . DIRECTED Vital Signs [RC] PER UNIT ROUTINE BLOOD BANK HOLD SPECIMEN [BBK] Stat Nalbuphine [Nubain] 10 mg IVPUSH Q2H PRN Sodium Chloride 0.9% [Saline Flush] 10 ml FLUSH ASDIRECTED PRN Electronic Heart Tones Ext w TOCO [WOMSER] Routine Electronic Heart Tones Internal [WOMSER] Per Unit Routine Peripheral IV Insertion Adult [OM.PC] Routine Resuscitation Status Routine 08/11/21 14:26 Admission Status [Patient Status] [ADT] Routine 08/11/21 14:30 Lactated Ringers [Ringers, Lactated] 1,000 ml IV ASDIRECTED Oxytocin/Lactated Ringers [Pitocin in LR 10 Units/1,000 ML] 10 unit in 1,000 ml IV TITRATE 08/11/21 Dinner Regular Diet [DIET] 08/11/21 21:00 Sodium Chloride 0.9% [Saline Flush] 10 ml FLUSH 0900,2100 - Assessment Assessment:: PPD#0 - Plan Plan:: * Routine cares * Breast feeding * Discharge home in 2 days
[2021-08-11] MEDS ORDERED: Acetaminophen 325 MG Tab PO PRN (22:35)
[2021-08-11] MEDS ORDERED: Witch Hazel Medicated Pads 40/Jar TOP PRN (22:35)
[2021-08-11] MEDS ORDERED: Benzocaine/Menthol 20%-0.5% Spray 78 GM Cannister TOP PRN (22:35)
[2021-08-11] MEDS ORDERED: Docusate Sodium 100 MG Cap PO PRN (22:35)
[2021-08-11] MEDS: Ibuprofen 600 MG Tab PO PRN (22:48)
--- NOTE | 2021-08-12 07:31 | PCM.PNPP ---
- General Info Date of Service: 08/12/21 Functional Status: Reports: Pain Controlled, Tolerating Diet, Ambulating, Urinating - Review of Systems General: Reports: No Symptoms Pulmonary: Reports: No Symptoms Cardiovascular: Reports: No Symptoms Gastrointestinal: Reports: Abdominal Pain (cramping fairly intense) Genitourinary: Reports: No Symptoms Musculoskeletal: Reports: No Symptoms - General Info Date of Service: 08/12/21 - Patient Data Vital Signs - Most Recent: Last Vital Signs Temp 36.8 C 08/12/21 02:41 Pulse 75 08/12/21 02:41 Resp 14 08/12/21 02:41 BP 103/62 08/12/21 02:41 Pulse Ox 97 08/12/21 02:41 Weight - Most Recent: 69.853 kg I&O - Last 24 Hours: Intake & Output 08/11/21 08/12/21 08/12/21 22:59 06:59 14:59 Intake Total 2500 Output Total 350 Balance 2150 Lab Results - Last 24 Hours: Laboratory Results - last 24 hr 08/11/21 08/11/21 08/11/21 Range/Units 15:00 15:02 15:02 WBC 7.30 (3.98-10.04) K/mm3 RBC 3.19 L (3.98-5.22) M/mm3 Hgb 9.7 L D (11.2-15.7) gm/dl Hct 30.6 L (34.1-44.9) % MCV 95.9 H D (79.4-94.8) fl MCH 30.4 (25.6-32.2) pg MCHC 31.7 L (32.2-35.5) g/dl RDW Std Deviation 47.5 H (36.4-46.3) fL Plt Count 168 L (182-369) K/mm3 MPV 9.5 (9.4-12.3) fl RPR Non-reactive (NONREACTIVE) SARS-CoV-2 RNA (ZAHRAA) Positive H (NEGATIVE) Med Orders - Current: Current Medications Acetaminophen (Acetaminophen 325 Mg Tab) 650 mg PO Q4H PRN PRN Reason: mild pain or fever Benzocaine/Menthol (Benzocaine/Menthol 20%-0.5% [place] 78 Gm Cannister) 0 gm TOP ASDIRECTED PRN PRN Reason: Perineal Comfort Measure Docusate Sodium (Docusate Sodium 100 Mg Cap) 100 mg PO BID PRN PRN Reason: Constipation Ibuprofen (Ibuprofen 600 Mg Tab) 600 mg PO Q6H PRN PRN Reason: Mild pain or fever Last Admin: 08/11/21 22:48 Dose: 600 mg Documented by: Mendy Loera (Mendy Loera Medicated Pads 40/Jar) 1 pad TOP ASDIRECTED PRN PRN Reason: Perineal Comfort Measure Discontinued Medications Ephedrine Sulfate (Ephedrine 50 Mg/Ml Sdv) 5 mg IVPUSH ASDIRECTED PRN PRN Reason: Hypotension Fentanyl (Fentanyl 100 Mcg/2 Ml Sdv) 100 mcg EPIDUR Q3H PRN PRN Reason: Pain Last Admin: 08/11/21 20:16 Dose: 100 mcg Documented by: Fentanyl/Bupivacaine HCl (Bupivacaine/Fentanyl/Ns 100 Ml Bag) 100 ml EPIDUR ASDIRECTED [facility] Last Admin: 08/11/21 20:16 Dose: 100 ml Documented by: Oxytocin/Lactated Ringer's (Pitocin In Lr 10 Units/1,000 Ml) 10 unit in 1,000 mls @ 12 mls/hr IV TITRATE [facility]; Protocol Last Titration: 08/11/21 21:30 Dose: 83.33 munits/min, 499.98 mls/hr Documented by: Lactated Ringer's (Ringers, Lactated) 1,000 mls @ 100 mls/hr IV ASDIRECTED [facility] Last Admin: 08/11/21 22:48 Dose: 100 mls/hr Documented by: Lactated Ringer's (Ringers, Lactated) Confirm Administered Dose 1,000 mls @ as directed .ROUTE .STK-MED ONE Stop: 08/11/21 14:27 Last Admin: 08/11/21 16:56 Dose: Not Given Documented by: Miscellaneous Medication (Phenylephrine Hcl In 0.9% Nacl 1 Mg/10 Ml Syringe) 0.1 mg IVPUSH Q10M PRN PRN Reason: Hypotension Nalbuphine HCl (Nalbuphine 10 Mg/1 Ml Vial) 10 mg IVPUSH Q2H PRN PRN Reason: Pain Ondansetron HCl (Ondansetron 4 Mg/2 Ml Sdv) 4 mg IVPUSH ONETIME PRN PRN Reason: Nausea/Vomiting Sodium Chloride (Sodium Chloride 0.9% 10 Ml Syringe) 10 ml FLUSH 0900,2100 [facility] Sodium Chloride (Sodium Chloride 0.9% 10 Ml Syringe) 10 ml FLUSH ASDIRECTED PRN PRN Reason: Keep Vein Open - Interaction Disposition, : [place] in Room with Family Infant Interaction: Holding Feeding: Attempted ; Nursed Fair/Poor Support Person: - Recovery Exam Fundal Tone: Firm Fundal Level: 2 Fingerbreadths Below Umbilicus Fundal Placement: Midline Lochia Amount: Small Lochia Color: Rubra/Red Perineum Description: Intact, Minimal Bruising/Swelling Episiotomy/Laceration: None Bladder Status: Voiding Urinary Elimination: Voided - Exam General: Alert, Oriented, Cooperative GI/Abdominal Exam: Soft, Non-Tender - Problem List & Annotations (1) 37 weeks gestation of SNOMED Code(s): 87221767 Code(s): Z3A.37 - 37 WEEKS GESTATION OF Status: Acute Current Visit: Yes (2) Oligohydramnios SNOMED Code(s): 98982515 Code(s): O41.00X0 - OLIGOHYDRAMNIOS, UNSP TRIMESTER, NOT APPLICABLE OR UNSP Status: Acute Current Visit: Yes Qualifiers: Fetus number: single or unspecified fetus Trimester: third trimester Qualified Code(s): O41.03X0 - Oligohydramnios, third trimester, not applicable or unspecified (3) Vaginal delivery SNOMED Code(s): 354075024 Code(s): O80 - ENCOUNTER FOR FULL-TERM UNCOMPLICATED DELIVERY Status: Acute Current Visit: No (4) COVID-19 affecting in third trimester SNOMED Code(s): 474210779, 542002958 Code(s): O98.513 - OTHER VIRAL DISEASES COMPLICATING , THIRD TRIMESTER; U07.1 - COVID-19 Status: Acute Current Visit: Yes - Problem List Review Problem List Initiated/Reviewed/Updated: Yes - My Orders Last 24 Hours: My Active Orders 08/11/21 Breakfast Regular Diet [DIET] 08/11/21 14:19 Resuscitation Status Routine 08/11/21 22:35 Acetaminophen [TylenoL] 650 mg PO Q4H PRN Benzocaine/Menthol [Dermoplast Pain Relief 20%-0.5% [place]] See Dose Instructions TOP ASDIRECTED PRN Docusate Sodium [Colace] 100 mg PO BID PRN Ibuprofen [Motrin] 600 mg PO Q6H PRN witch Sonu [Tucks] 1 pad TOP ASDIRECTED PRN Heat Therapy [OM.PC] PRN 08/11/21 22:35 Activity as Tolerated [RC] PER UNIT ROUTINE Vital Signs [RC] 03,,, Assess Lochia [WOMSER] Per Unit Routine Assess Uterine Involution [WOMSER] Per Unit Routine Breast Pump [WOMSER] Per Unit Routine Ice Therapy [OM.PC] Per Unit Routine Perineal Care [OM.PC] Per Unit Routine Peripheral IV Discontinue [OM.PC] Routine Sitz Bath [OM.PC] Per Unit Routine 08/12/21 22:35 Heat Therapy [OM.PC] PRN - Assessment Assessment:: PPD#1 - Plan Plan:: * Routine cares * Breast feeding * Will add in lortab for cramping * Discharge home tomorrow
[2021-08-12] MEDS ORDERED: Acetaminophen/HYDROcodone 325-5 MG Tab PO PRN (07:34)
--- NOTE | 2021-08-12 11:51 | PCM48HPAN ---
Post Anesthesia Note - EVALUATION WITHIN 48HRS OF ANESTHETIC Vital Signs in Normal Range: Yes Patient Participated in Evaluation: Yes Respiratory Function Stable: Yes Airway Patent: Yes Cardiovascular Function Stable: Yes Hydration Status Stable: Yes Pain Control Satisfactory: Yes Nausea and Vomiting Control Satisfactory: Yes Mental Status Recovered: Yes Vital Signs: Last Vital Signs Temp 37.2 C 08/12/21 08:06 Pulse 81 08/12/21 08:06 Resp 16 08/12/21 08:06 BP 92/62 08/12/21 08:06 Pulse Ox 100 08/12/21 08:06
[2021-08-12] MEDS: Ibuprofen 600 MG Tab PO PRN ×2 (14:52→20:58)
--- NOTE | 2021-08-13 07:04 | PCM.PNPP ---
- General Info Date of Service: 08/13/21 Functional Status: Reports: Pain Controlled, Tolerating Diet, Ambulating, Urinating - Review of Systems General: Reports: No Symptoms Pulmonary: Reports: No Symptoms Cardiovascular: Reports: No Symptoms Gastrointestinal: Reports: No Symptoms Genitourinary: Reports: No Symptoms Musculoskeletal: Reports: No Symptoms Skin: Reports: No Symptoms - General Info Date of Service: 08/13/21 - Patient Data Vital Signs - Most Recent: Last Vital Signs Temp 37.2 C 08/13/21 03:46 Pulse 80 08/13/21 03:46 Resp 13 08/13/21 03:46 BP 94/70 08/13/21 03:46 Pulse Ox 99 08/13/21 03:46 Weight - Most Recent: 69.853 kg I&O - Last 24 Hours: Intake & Output 08/12/21 08/13/21 08/13/21 22:59 06:59 14:59 Intake Total 560 Balance 560 - Interaction Infant Disposition, : [place] in Room with Family Interaction: Holding Infant Feeding: Breastfed ; Nursed Well Support Person: - Recovery Exam Fundal Tone: Firm Fundal Level: 2 Fingerbreadths Below Umbilicus Fundal Placement: Midline Lochia Amount: Small Lochia Color: Rubra/Red Perineum Description: Intact, Minimal Bruising/Swelling Episiotomy/Laceration: None Bladder Status: Voiding Urinary Elimination: Voided - Exam General: Alert, Oriented, Cooperative GI/Abdominal Exam: Soft, Non-Tender - Problem List & Annotations (1) 37 weeks gestation of SNOMED Code(s): 53922888 Code(s): Z3A.37 - 37 WEEKS GESTATION OF Status: Acute Current Visit: Yes (2) Oligohydramnios SNOMED Code(s): 69500798 Code(s): O41.00X0 - OLIGOHYDRAMNIOS, UNSP TRIMESTER, NOT APPLICABLE OR UNSP Status: Acute Current Visit: Yes Qualifiers: Fetus number: single or unspecified fetus Trimester: third trimester Qualified Code(s): O41.03X0 - Oligohydramnios, third trimester, not applicable or unspecified (3) Vaginal delivery SNOMED Code(s): 051600914 Code(s): O80 - ENCOUNTER FOR FULL-TERM UNCOMPLICATED DELIVERY Status: Acute Current Visit: No (4) COVID-19 affecting in third trimester SNOMED Code(s): 218957779, 068433313 Code(s): O98.513 - OTHER VIRAL DISEASES COMPLICATING , THIRD TRIMESTER; U07.1 - COVID-19 Status: Acute Current Visit: Yes - Problem List Review Problem List Initiated/Reviewed/Updated: Yes - My Orders Last 24 Hours: My Active Orders 08/12/21 07:34 Acetaminophen/HYDROcodone [[place] 325-5 MG] 1 tab PO Q6H PRN 08/12/21 22:35 Heat Therapy [OM.PC] PRN 08/13/21 07:04 Ready for Discharge [RC] PER UNIT ROUTINE - Assessment Assessment:: PPD#2 - Plan Plan:: * Routine cares * Breast feeding * Discharge home today
--- NOTE | 2021-08-13 07:04 | PCM.DCSUM1 ---
Discharge Summary - Discharge Data Discharge Date: 08/13/21 Discharge Disposition: Home, Self-Care 01 Condition: Good - Referral to Home Health Primary Care Physician: Mylene Hollingsworth MD - Discharge Diagnosis/Problem(s) (1) 37 weeks gestation of SNOMED Code(s): 78037224 ICD Code: Z3A.37 - 37 WEEKS GESTATION OF Status: Acute Current Visit: Yes (2) Oligohydramnios SNOMED Code(s): 33443816 ICD Code: O41.00X0 - OLIGOHYDRAMNIOS, UNSP TRIMESTER, NOT APPLICABLE OR UNSP Status: Acute Current Visit: Yes Qualifiers: Fetus number: single or unspecified fetus Trimester: third trimester Qualified Code(s): O41.03X0 - Oligohydramnios, third trimester, not applicable or unspecified (3) Vaginal delivery SNOMED Code(s): 257721510 ICD Code: O80 - ENCOUNTER FOR FULL-TERM UNCOMPLICATED DELIVERY Status: Acute Current Visit: No (4) COVID-19 affecting in third trimester SNOMED Code(s): 428875452, 054325808 ICD Code: O98.513 - OTHER VIRAL DISEASES COMPLICATING , THIRD TRIMESTER; U07.1 - COVID-19 Status: Acute Current Visit: Yes - Patient Summary/Data Complications: None Consults: None Recommended Follow-up Testing/Procedures: Follow up in 3 weeks for check Hospital Course: 30 y/o at 37 2/7 wks presented for IOL for findings of oligohydramnios on US. Induction done with pitocin and AROM. Progressed well to complete dilation. Underwent an uncomplicated . See delivery note. was discharged home on PPD#2 - Patient Instructions Diet: Regular Diet as Tolerated Activity: As Tolerated Activity, Other: Pelvic rest Driving: May Drive Today Showering/Bathing: May Shower Showering/Bathing, Other: May Bathe Notify Provider of: Fever, Increased Pain, Swelling and Redness, Drainage, Nausea and/or Vomiting - Discharge Plan *PRESCRIPTION DRUG MONITORING PROGRAM REVIEWED*: Not Applicable *COPY OF PRESCRIPTION DRUG MONITORING REPORT IN PATIENT [place]IE[place]: Not Applicable Home Medications: Home Meds Docusate Sodium [Colace] 100 mg PO BID PRN #0 cap 02/18/17 [Rx] Ibuprofen [IJD: Ibuprofen] 600 mg PO Q6H PRN #0 tablet 06/23/17 [Rx] Acetaminophen [Tylenol] 650 mg PO Q4H PRN tablet 08/12/21 [Rx] Patient Handouts: Care After Vaginal Delivery Referrals: Mylene Hollingsworth MD [Primary Care Provider] - (3 weeks for check) - Discharge Summary/Plan Comment DC Time >30 min.: No Total # of Minutes for Discharge Time: 15 - Patient Data Vitals - Most Recent: Last Vital Signs Temp 37.2 C 08/13/21 03:46 Pulse 80 08/13/21 03:46 Resp 13 08/13/21 03:46 BP 94/70 08/13/21 03:46 Pulse Ox 99 08/13/21 03:46 Weight - Most Recent: 69.853 kg I&O - Last 24 hours: Intake & Output 08/12/21 08/13/21 08/13/21 22:59 06:59 14:59 Intake Total 560 Balance 560 Med Orders - Current: Current Medications Acetaminophen (Acetaminophen 325 Mg Tab) 650 mg PO Q4H PRN PRN Reason: mild pain or fever Hydrocodone Bitart/Acetaminophen (Acetaminophen/Hydrocodone 325-5 Mg Tab) 1 tab PO Q6H PRN PRN Reason: Abdominal Pain Last Admin: 08/12/21 10:41 Dose: 1 tab Documented by: Benzocaine/Menthol (Benzocaine/Menthol 20%-0.5% [place] 78 Gm Cannister) 0 gm TOP ASDIRECTED PRN PRN Reason: Perineal Comfort Measure Docusate Sodium (Docusate Sodium 100 Mg Cap) 100 mg PO BID PRN PRN Reason: Constipation Ibuprofen (Ibuprofen 600 Mg Tab) 600 mg PO Q6H PRN PRN Reason: Mild pain or fever Last Admin: 08/12/21 20:58 Dose: 600 mg Documented by: Mendy Loera (Mendy Loera Medicated Pads 40/Jar) 1 pad TOP ASDIRECTED PRN PRN Reason: Perineal Comfort Measure Discontinued Medications Ephedrine Sulfate (Ephedrine 50 Mg/Ml Sdv) 5 mg IVPUSH ASDIRECTED PRN PRN Reason: Hypotension Fentanyl (Fentanyl 100 Mcg/2 Ml Sdv) 100 mcg EPIDUR Q3H PRN PRN Reason: Pain Last Admin: 08/11/21 20:16 Dose: 100 mcg Documented by: Fentanyl/Bupivacaine HCl (Bupivacaine/Fentanyl/Ns 100 Ml Bag) 100 ml EPIDUR ASDIRECTED [facility] Last Admin: 08/11/21 20:16 Dose: 100 ml Documented by: Oxytocin/Lactated Ringer's (Pitocin In Lr 10 Units/1,000 Ml) 10 unit in 1,000 mls @ 12 mls/hr IV TITRATE [facility]; Protocol Last Titration: 08/11/21 21:30 Dose: 83.33 munits/min, 499.98 mls/hr Documented by: Lactated Ringer's (Ringers, Lactated) 1,000 mls @ 100 mls/hr IV ASDIRECTED [facility] Last Admin: 08/11/21 22:48 Dose: 100 mls/hr Documented by: Lactated Ringer's (Ringers, Lactated) Confirm Administered Dose 1,000 mls @ as directed .ROUTE .[facility]-MED ONE Stop: 08/11/21 14:27 Last Admin: 08/11/21 16:56 Dose: Not Given Documented by: Miscellaneous Medication (Phenylephrine Hcl In 0.9% Nacl 1 Mg/10 Ml Syringe) 0.1 mg IVPUSH Q10M PRN PRN Reason: Hypotension Nalbuphine HCl (Nalbuphine 10 Mg/1 Ml Vial) 10 mg IVPUSH Q2H PRN PRN Reason: Pain Ondansetron HCl (Ondansetron 4 Mg/2 Ml Sdv) 4 mg IVPUSH ONETIME PRN PRN Reason: Nausea/Vomiting Sodium Chloride (Sodium Chloride 0.9% 10 Ml Syringe) 10 ml FLUSH 0900,2100 [facility] Sodium Chloride (Sodium Chloride 0.9% 10 Ml Syringe) 10 ml FLUSH ASDIRECTED PRN PRN Reason: Keep Vein Open
[2021-08-13 10:40] VITALS: BP 117/82; PULSE 72
== END 2021-08-13 14:10 | disposition home or self-care (01) | DRG 805 ==
LOC: JD.OB 13:48 → OBSVTOIN 21:27 → JD.OB 21:27
PROVIDERS: ADMIT Obstetrics & Gynecology; ATTEND Obstetrics & Gynecology
PROC: 10E0XZZ Delivery of Products of Conception, External Approach (ICD-10-PCS; principal; 2021-08-11)
PROC: 3E033VJ Introduction of Other Hormone into Peripheral Vein, Percutaneous Approach (ICD-10-PCS; 2021-08-11)
PROC: 10907ZC Drainage of Amniotic Fluid, Therapeutic from Products of Conception, Via Natural or Artificial Opening (ICD-10-PCS; 2021-08-11)
PROC: 3E0R3BZ Introduction of Anesthetic Agent into Spinal Canal, Percutaneous Approach (ICD-10-PCS; 2021-08-11)
DX: O41.03X0 Oligohydramnios, third trimester, not applicable or unspecified (principal); U07.1 COVID-19; Z37.0 Single live birth; O98.52 Other viral diseases complicating childbirth; Z3A.37 37 weeks gestation of pregnancy
CPT/HCPCS: 01967; 36415; 51702; 59025; 59409; 85027; 86592; A9270-GY; J2590; J3010; J3490; J7120; U0002